=== PATIENT | male | born 1945 | race Caucasian/White ===

== ENCOUNTER → 2019-04-25 09:30 | Outpatient (CLI) | payer MEDICARE, OTHER | END | disposition home or self-care (01) | LOC: D.HCCARDIO 09:30 | PROVIDERS: ATTEND Internal Medicine Cardiovascular Disease | DX: I25.10 Atherosclerotic heart disease of native coronary artery without angina pectoris (principal) ==

== ENCOUNTER 2019-05-27 11:08 | Outpatient (CLI) | payer MEDICARE, OTHER ==
[~2019-05-27] VITALS: Ht 185.4 cm; Wt 111.4 kg
--- NOTE | ~2019-05-27 | HEMODYNAMI ---
PATIENT:EMILY BROOKS MEDICAL RECORD: [id number] : 49 LOCATION:D.CAT ADMISSION DATE: 05/27/19 Generatedon:05/27/201914:23 Patient name: EMILY BROOKS Patient #: [id number] SSN: [id number] : 1945 Date of study: 05/27/2019 Page: Of Hemodynamic Procedure Report Patient Data Patient Demographics Procedure consent was obtained First Name: EMILY Gender: Male Last Name: TODD : 1945 [facility] Initial: D Age: 74 year(s) Patient #: [id number] Race: SSN: [id number] Additional ID: [id number] Contact details Address: [address] [place] [address] State: [place] City: [facility] Zip code: [address] Past Medical History Allergies Allergen Reaction Date Comments Reported Other allergy 05/27/2019 [facility] Admission Admission Data Admission Date: 05/27/2019 Admission Time: 11:08 Arrival Date: 05/27/2019 Arrival Time: 13:00 Admit Source: Other Insurance Payor: Medicare [facility] #: [id number] Height (in.): 72.83 BSA: 2.34 (m2) Height (cm.): 185 BMI: 32.43 (kg/m2) Weight (lbs.): 244.71 Weight (kg.): 111 Lab Results Lab Result Date: 05/27/2019 Lab Result Time: 0:00 Biochemistry Name Units Result Min Max BUN mg/dl 15 --(--*-)-- 7 18 Creatinine mg/dl 1 --(--*-)-- 0.6 1.3 eGFR ml/min 78 *-(----)-- 90 120 NONAFRICAN CBC Name Units Result Min Max Hemoglobin g/dl 16 --(--*-)-- 13.5 17.5 Procedure Procedure Types Cath Procedure Diagnostic Procedure LHC Coronaries w/Grafts Sedation Charges Moderate Sedation up to 30 minutes Procedure Description Procedure Date Procedure Date: 05/27/2019 Procedure Start Time: 13:56 Procedure End Time: 14:18 Procedure Staff Name Function Benjamin Campbell MD Performing Physician Nemo Maxwell RT Monitor Karon Martin RN Nurse Marla Santaigo RT Scrub Indication Chest pain Procedure Data Cath Procedure Fluoroscopy Diagnostic fluoroscopy Total fluoroscopy Time: 5.4 time: 5.4 min min Diagnostic fluoroscopy Total fluoroscopy dose: dose: 424.21 mGy 424.21 mGy Contrast Material Contrast Material Type Amount (ml) Isovue 300 94 Entry Location Entry Primary Successful Side Size Upsize Upsize Entry Closure Succes sful Closure Location (Fr) 1 (Fr) 2 (Fr) Remarks Device Remarks Femoral Right 5 Fr Exoseal artery Estimated blood loss: 10 ml Diagnostic catheters Device Type Used For End Catheter Placement MULTIPACK JL 4.0 5Fr Left Coronary catheter Angiography DIAGNOSTIC AR1 MOD 5Fr Procedure catheter ([id number]) DIAGNOSTIC IM 5Fr Procedure catheter ([id number]) DIAGNOSTIC AR2 MOD 5 Fr Procedure catheter ([id number]) MULTIPACK Pigtail 5 Fr LV Angiography catheter Procedure Complications No complications Procedure Medications Medication Administration Route Dosage 0.9% NaCl I.V. 100 ml/hr Oxygen etCO2 Nasal cannula 2 l/min Lidocaine 2% added to field 20 Heparin Flush Bag added to field 2 bags (1000units/500ml NS) Versed I.V. 2 mg Fentanyl I.V. 100 mcg Hemodynamics Rest BSA: 2.34 (m2) HGB: 16 (g/dl) O2 Consumption: Estimated: 271.35 (ml/min) O2 Cons umption indexed: Estimated:115.96 (ml/min/m) Heart Rate: 71 (bpm) Pressure Samples Time Site Value (mmHg) Purpose Heart Use Rate(bpm) 14:10 LV 130/-6,15 Snapshot 75 Gradients Valve Time Site Site Mean SEP/DFP Peak To Heart Use 1 2 (mmHg) (sec/min) Peak Rate (mmHg) (bpm) Aortic 14:10 LV AO 75 Aortic 14:11 LV AO 76 Snapshots Pre Cath Intra NCS Post Cath Vital Signs Time Heart Resp SPO2 etCO2 NIBP (mmHg) Rhythm Pain Sedation Rate (ipm) (%) (mmHg) Status Level (bpm) 13:28:30 72 14 98 29.4 133/75(108) NSR 0 (11) 10(A) , No pain 13:32:39 73 15 99 33.2 132/77(107) NSR 0 (11) 10(A) , No pain 13:36:49 75 14 97 31.7 119/70(91) NSR 0 (11) 10(A) , No pain 13:41:01 77 12 98 33.2 121/67(88) NSR 0 (11) 10(A) , No pain 13:45:13 73 15 97 27.1 118/68(92) NSR 0 (11) 10(A) , No pain 13:49:25 75 14 97 29.4 115/68(92) NSR 0 (11) 10(A) , No pain 13:53:33 80 15 98 30.9 117/74(97) NSR 0 (11) 10(A) , No pain 13:57:43 77 12 99 28.6 131/74(107) NSR 0 (11) 10(A) , No pain 14:01:57 75 10 98 36.2 126/72(102) NSR 0 (11) 10(A) , No pain 14:06:11 75 10 98 27.9 121/68(88) NSR 0 (11) 10(A) , No pain 14:10:23 74 14 98 34.6 123/72(102) NSR 0 (11) 10(A) , No pain 14:14:33 75 16 100 27.1 135/78(103) NSR 0 (11) 10(A) , No pain 14:18:45 73 13 98 34.6 126/75(92) NSR 0 (11) 10(A) , No pain Medications Time Medication Route Dose Verified Delivered Reason Notes Eff ectiveness by by 13:29:09 0.9% NaCl I.V. 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 2 mg Benjamin Karon for Adrian Martin sedation RN 13:51:34 Fentanyl I.V. 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 13:08:32 ACCPatient has been prescribed/administered the following anti-anginal medication within the last 2 weeks: Beta Stacye 13:08:42 Procedure Status Elective Heart Cath (OP). 13:10:18 Informed consent obtained and on chart 13:14:48 Marla Santiago RT(R) sent for patient. Start room use. 13:14:51 Time tracking: Regular hours (M-F 7:00 - 5:00) 13:15:00 Plan of Care:Hemodynamics will remain stable., Cardiac rhythm will remain stable., Comfort level will be maintained., Respiratory function will remain adequate., Patient/ family verbilizes understanding of procedure., Procedure tolerated without complication., Recovers from procedure without complications.. 13:25:13 Patient received from Pre/Post Procedure Room to CCL 3 Alert and oriented. Tansferred to table in Supine position. 13:25:22 Warm blankets applied, and jose raul hugger turned on for patient comfort. 13:25:26 Signed procedure consent form obtained from patient. 13:25:31 Correct patient and procedure confirmed by team. 13:25:32 ECG and BP/O2 sat monitors applied to patient. 13:27:23 Vital chart was started 13:27:56 Baseline sample Acquired. 13:28:33 Baseline sample Acquired. 13:28:52 Baseline sample Acquired. 13:29:09 0.9% NaCl 100 ml/hr I.V. was administered by Karon Martin RN; used for procedure; Verbal order read back and verified. 13:29:15 Oxygen 2 l/min etCO2 Nasal cannula was administered by Karon Martin RN; used for procedure; Verbal order read back and verified. 13:29:19 Lidocaine 2% 20ml vial added to field was administered by Benjamin Campbell MD; for local anesthetic; Verbal order read back and verified. 13:29:24 Heparin Flush Bag (1000units/500ml NS) 2 bags added to field was administered by Benjamin Campbell MD; used for procedure; Verbal order read back and verified. 13:29:24 Rhythm: sinus rhythm 13:29:27 Full Disclosure recording started 13:29:38 H&P Date Dictated: 05/27/2019 H&P Addendum completed by physician on day of procedure. (MUST COMPLETE FOR ALL OUTPATIENTS), New H&P dictated by physician.. 13:29:41 Pre-procedure instructions explained to patient. 13:29:43 Pre-op teaching completed and patient verbalized understanding. 13:29:47 Family in waiting room. 13:29:50 Patient NPO since Midnight. 13:30:11 Patient allergic to Other allergyPCN 13:30:17 Is the patient allergic to Iodine/contrast media? No. 13:31:09 Is patient on blood thinner?Yes 13:31:15 ACC The patient was administered the following blood thiners within the last 24 hours: ACCAspirin 13:31:19 Patient diabetic? Yes. 13:31:22 If diabetic: On Metformin? Yes 13:31:31 If on Metformin: Last Dose? 05/25/2019 13:31:36 ----Pre-sedation anethsthesia assessment.---- 13:31:41 Snore? Yes 13:31:42 Sleep apnea? Yes 13:31:45 Deviated septum? No 13:31:48 Opens mouth fully? Yes 13:31:49 Sticks out tongue? Yes 13:32:23 Airway obstruction? No ? 13:32:27 Dentures? No ? 13:37:39 Pre procedure: right dorsailis pedis pulse 1+ Palpable, but thready & weak; easily obliterated 13:37:53 Patient pain scale 0/10 ?. 13:38:04 IV patent on arrival in left forearm with 0.9% NaCl at [facility]. 13:38:12 Lab results completed and on chart. 13:38:18 Right groin area was prepped with chlora-prep and draped in sterile fashion 13:38:20 Alarms reviewed by R. N. 13:38:23 Sharps counted by scrub and verified by R.N./4 13:39:11 Use device set Femoral Dx 13:39:16 ACIST Syringe (56997) opened to sterile field. 13:39:17 Bag Decanter (2002S) opened to sterile field. 13:39:18 Medline Cath Pack ([id number]) opened to sterile field. 13:39:21 ACIST Hand Control (91462) opened to sterile field. 13:39:22 ACIST Manifold (20959) opened to sterile field. 13:39:27 Tegaderm 4 x 4 (1626W) opened to sterile field. 13:39:32 SHEATH 5FR [place] ([id number]) opened to sterile field. 13:39:33 EMERALD Guide Wire (204-459) opened to sterile field. 13:39:35 DIAGNOSTIC Multipack 5Fr catheter set (HL3571) opened to sterile field. 13:49:51 Physician arrived 13:49:52 --------ALL STOP TIME OUT------ 13:49:53 Final Timeout: patient, procedure, and site verified with staff and physician. All members of the team are in agreement. 13:49:55 Right groin site verified by team. 13:50:03 Fire Safety Assessment: A--An alcohol-based skin anteseptic being used preoperatively., C--Open oxygen or nitrous oxide is being used., D--An ESU, laser, or fiber-optic light is being used. 13:50:15 Physical assessment completed. ASA score P 2 - A patient with mild systemic disease as per Benjamin Campbell MD. 13:50:23 2) 60-89 Mildly reduced kidney function, and other findings (as for stage 1) point to kidney disease. 13:50:34 Maximum allowable contrast dose (3.7 X eGFR X 0.75)216 ml. 13:50:43 Sedation plan: IV Moderate Sedation Medication:Versed, Fentanyl 13:51:20 Versed 2 mg I.V. was administered by Kraon Martin RN; for sedation; Verbal order read back and verified. 13:51:28 Zero performed for pressure channel P1 13:51:34 Fentanyl 100 mcg I.V. was administered by Karon Martin RN; for sedation; Verbal order read back and verified. 13:54:56 Procedure started. 13:56:05 Local anesthetic to right femoral artery with Lidocaine 2% by Benjamin Campbell MD.INITIAL ACCESS ONLY 13:57:52 A 5 Fr sheath was inserted into the Right Femoral artery 13:58:11 A MULTIPACK JL 4.0 5Fr catheter was advanced over the wire and used for Left Coronary Angiography. 13:59:08 LCA angiography performed. 13:59:30 Injector settings: Ml/sec: 3, Volume: 5, 14:00:13 Catheter removed. 14:00:37 A DIAGNOSTIC AR1 MOD 5Fr catheter ([id number]) was advanced over the wire and used for Procedure. 14:01:42 RCA angiography performed. 14:02:02 Injector settings: Ml/sec: 3, Volume: 5, 14:03:06 Catheter removed. 14:03:53 A DIAGNOSTIC IM 5Fr catheter ([id number]) was advanced over the wire and used for Procedure. 14:05:14 TRIPP to LAD angiography performed. 14:05:26 Injector settings: Ml/sec: 3, Volume: 5, 14:06:17 Catheter removed. 14:06:33 A DIAGNOSTIC AR2 MOD 5 Fr catheter ([id number]) was advanced over the wire and used for Procedure. 14:07:50 SVG to RCA angiography performed. 14:07:58 Injector settings: Ml/sec: 3, Volume: 5, 14:09:12 Catheter removed. 14:09:35 A MULTIPACK Pigtail 5 Fr catheter was advanced over the wire and used for LV Angiography. 14:10:32 LV hemodynamics recorded. 14:11:28 EF : 55 % 14:11:34 LV gram done using ALBERTS 14:11:40 Injector settings: Ml/sec: 5, Volume: 15, 14:11:44 Aortic Root visualized 14:12:01 Catheter removed. 14:12:39 Sheath removed intact; hemostasis achieved with Exoseal to the Right Femoral artery. 14:13:00 EXOSEAL 5Fr (EX500) opened to sterile field. 14:13:27 Procedure ended.(Physican Out) 14:13:42 Fluoroscopy time 05.40 minutes. 14:14:01 Flurop Dose total: 424.21 14:14:01 Fluoroscopy dose: 424.21 mGy 14:14:25 Dose Area Product 3191.06 mGy/cm. 14:14:33 Contrast amount:Isovue 300 94ml. 14:14:37 Maximum allowable dose exceeded? No. 14:14:38 Sharps counted by scrub and verified by R.N. 14:14:58 Insertion/operative site no bleeding no hematoma. 14:15:07 Post-op/insertion site Right Femoral artery dressed using a 4 x 4 and Tegaderm. 14:15:20 Post-procedure physical assessment completed. ASA score P 2 - A patient with mild systemic disease as per Benjamin Campbell MD. 14:15:28 Post procedure rhythm: unchanged. 14:15:33 Estimated blood loss: 10 ml 14:15:36 Post procedure instruction explained to patient.Patient verbalizes understanding. 14:15:37 Patient needs reinforcement of post procedure teaching. 14:16:18 Procedure type changed to Cath procedure, Diagnostic procedure, LHC, Coronaries w/Grafts, Sedation Charges, Moderate Sedation up to 30 minutes 14:16:22 Procedure and supply charges have been captured, reviewed, submitted and are correct. 14:18:38 Procedure Complication : No complications 14:18:42 Vital chart was stopped 14:18:43 See physician's report for complete and final results. 14:18:45 Report given to Pre/Post Procedure Room. 14:18:51 Patient transfered to Pre/Post Procedure Room with Stretcher. 14:18:55 Procedure ended. 14:18:55 Full Disclosure recording stopped 14:21:19 End room use (Document Last) Device Usage Item Name Manufacture Quantity Catalog Hospital Part Current Minimal L ot# / Number Charge Number Stock Stock Serial# Code ACIST Acist 1 17522 217069 583901 115271 20 Syringe A&E [employer] (90243) Systems Inc Bag Microtek 1 635200 73087 331282 5 [employer]ash[employer]. () Medline Medline 1 [id number] 224961 56657 687509 5 Cath Pack ([id number]) ACIST Hand Acist 1 86877 354579 449641 777853 5 Control Medical (04160) Systems Inc ACIST Acist 1 96153 982457 567702 299997 5 Manifold Medical (36239) Systems Inc Tegaderm 4 3M 1 1626W 683715 893819 187534 5 x 4 (1626W) SHEATH 5FR Terumo 1 DFY397 935245 749353 393384 5 [place] (WBY509) EMERALD Cardinal 1 502-455 182095 243443 217270 5 Guide Wire Health (502-455) DIAGNOSTIC Cardinal 1 FO1581 795309 44538 401965 30 Multipack Health 5Fr catheter set (ME5159) MULTIPACK Cardinal 1 361471 5 JL 4.0 5Fr Health catheter DIAGNOSTIC Cardinal 1 [id number] 637555 371270 130651 15 AR1 MOD 5Fr Health catheter (231414D) DIAGNOSTIC Cardinal 1 [id number] 941305 591791 290150 5 IM 5Fr Health catheter (953044T) DIAGNOSTIC Cardinal 1 [id number] 367948 635408 810830 20 AR2 MOD 5 Health Fr catheter (308206W) MULTIPACK Cardinal 1 424086 5 Pigtail 5 Health Fr catheter EXOSEAL 5Fr Cardinal 1 EX500 265682 698432 747508 10 (EX500) Health Signature Audit [place] Stage Time Signature Unsigned Intra-Procedure 05/27/2019 Nemo 2:22:06 PM Alissa RT(R) (CV) Intra-Procedure 05/27/2019 Karon Martin 2:22:47 PM RN Intra-Procedure 05/27/2019 Benjamin Campbell MD 2:23:52 PM [facility] [address] [place] [address]
[2019-05-27] MEDS ORDERED: GLIMEPIRIDE4 MG PO (11:46)
[2019-05-27] MEDS ORDERED: GLUCOPHAGE1000 MG PO (11:46)
[2019-05-27] MEDS ORDERED: ZOCOR40 MG PO (11:47)
[2019-05-27] MEDS ORDERED: COZAAR50 MG PO (11:47)
[2019-05-27] MEDS ORDERED: TOPROL XL50 MG PO (11:48)
[2019-05-27] MEDS ORDERED: LEVOTHYROXINE50 MCG PO (11:50)
[2019-05-27] MEDS ORDERED: OMEPRAZOLE40 MG PO (11:50)
[2019-05-27 12:05] VITALS: BP 131/67; Ht 185.4 cm; Wt 111.4 kg
[2019-05-27 12:11] LABS: BASOPHILS 0.2 % (0-2); HEMATOCRIT 47.5 % (42.0-54.0); IMMATURE GRANULOCYTES 0.2 % (0-5); LYMPHOCYTES 26.2 % (15-50); MCH 31.1 pg (26.0-34.0); MCHC 33.7 g/dL (31.0-37.0); MCV 92.4 fL (80.0-100.0); MEAN PLATELET VOLUME 10.3 fL (7.4-10.4); MONOCYTES 8.5 % (2-11); NEUTROPHILS 55.9 % (40-80); PLATELET COUNT 157 10x3/uL (130-400); RBC 5.14 10x6/uL (4.20-6.10); RDW 13.3 % (11.5-14.5); WBC 5.3 10x3/uL (4.8-10.8)
[2019-05-27 12:31] LABS: ALT (SGPT) 31 U/L (10-68); CALC OSMOLALITY 278 mosm/kg (275-300); CALCIUM 9.1 mg/dL (8.5-10.1); CARBON DIOXIDE 27.5 mmol/L (21.0-32.0); CHLORIDE - SERUM 101 mmol/L (98-107); CHOL - HDL RATIO 2.5 ratio (2.3-4.9); CHOLESTEROL, TOTAL 156 mg/dL (0-200); GLUCOSE 126 mg/dL (74-106); HDL CHOLESTEROL 63 mg/dL (32-96); LDL CHOLESTEROL 68 mg/dL (0-100); LDL-HDL RATIO 1.1 ratio (1.5-3.5); POTASSIUM - SERUM 4.6 mmol/L (3.5-5.1); SODIUM 138 mmol/L (136-145); TRIGLYCERIDE 125 mg/dL (30-200); UREA NITROGEN 15 mg/dL (7-18); eGFR NON AFRICAN AMERICAN 78 mL/min (90-120)
--- NOTE | 2019-05-27 14:49 | NUR ---
PT IS ALERT, DENIES ANY C/O PAIN OR NAUSEA. DRESSING IS CDI TO RIGHT GROIN, AREA IS SOFT AND NONTENDER. PEDAL PULSES PALPABLE. HOB IS FLAT. VSS, AT BEDSIDE, PT OG SIPS OF APPLE JUICE WITH NO C/O NAUSEA.
--- NOTE | 2019-05-27 15:01 | NUR ---
PT SLEEPING INTERMITTENTLY, AWAKENS EASILY AND DENIES ANY C/O. HOB IS FLAT, DRESSING CDI, PEDAL PULSES PALPABLE. NSR, RATE IS 71. BP 120/65, HR IS 70.
--- NOTE | 2019-05-27 15:27 | NUR ---
PT ALERT, DENIES ANY C/O. DRESSING IS CDI, PEDAL PULSES PALPABLE. NSR, RATE IS 69, BP IS 120/65. HOB FLAT, AT BEDSIDE.
--- NOTE | 2019-05-27 15:56 | NUR ---
HOB ELEVATED 30 DEGREES, SANDWICH AND PO FLUIDS AT BEDSIDE. DRESSING IS CDI TO RIGHT GROIN, AREA IS SOFT AND NONTENDER. PEDAL PULSES PALPABLE. VSS. PT ALERT AND DENIES ANY C/O AT THIS TIME, CALL LIGHT IN REACH.
--- NOTE | 2019-05-27 16:19 | NUR ---
HOB FULLY ELEVATED, DRESSING REMAINS CDI RIGHT GROIN, PEDAL PULSES PALPABLE. PT IS ALERT AND DENIES ANY C/O. VSS. OG SANDWICH WITH NO C/O NAUSEA.
--- NOTE | 2019-05-27 16:41 | NUR ---
DC INSTRUCTIONS REVIEWED WITH PT AND WHO VERBALIZE UNDERSTANDING. DRESSING REMAINS CDI TO RIGHT GROIN, PEDAL PULSES PALPABLE. PT IS ALERT AND DENIES ANY C/O. IV DC'D WITH CATH INTACT AND PT IS DRESSING FOR DC TO HOME WITH ASSIST.
--- NOTE | 2019-05-27 17:00 | NUR ---
1655 PT HAS AMBULATED TO THE BATHROOM AND VOIDED QS. DENIES ANY C/O. PT ESCORTED TO PRIVATE AUTO VIA WC BY NURSE WITH DRIVING HIM HOME. PT HAS ALL PERSONAL BELONGINGS AND DC INSTRUCTONS AT TIME OF DISCHARGE.
== END 2019-05-27 16:55 | disposition home or self-care (01) ==
LOC: D.CATH 11:08
PROVIDERS: ATTEND Internal Medicine Cardiovascular Disease
DX: I20.9 Angina pectoris, unspecified (principal); R94.30 Abnormal result of cardiovascular function study, unspecified